=== PATIENT | male | born 1990 | race Caucasian/White ===

== ENCOUNTER 2018-03-02 21:31 | Emergency (ER) | payer SELFPAY ==
[~2018-03-02] VITALS: Ht 175.3 cm; Wt 80.0 kg
[2018-03-02] MEDS ORDERED: IOHEXOL 350 MG/ML 10 ML VIAL (for RAD DIAG) IVCONTRAST ONE (21:32)
[2018-03-02 21:44] VITALS: BP 150/78; PULSE 85; RESP 18; TEMP 99.3; O2SAT 98
[2018-03-02] MEDS ORDERED: SODIUM CHLOR 0.9% 1000 ML INJ 1,000 ML IV SCH (23:02)
[2018-03-02] MEDS ORDERED: ONDANSETRON ODT 4 MG TAB PO ONE (23:15)
[2018-03-02] MEDS ORDERED: KETOROLAC TROMETHAMINE 30 MG/ML (IVP) VIAL IVP ONE (23:15)
[2018-03-02] MEDS ORDERED: SODIUM CHLORIDE 0.9% FLUSH 10 ML FLUSH IV FLUSH PRN (23:15)
[2018-03-02 23:39] LABS: AUTOMATED NEUTROPHIL # 7.8 TH/MM3 (1.8-7.7); BASOPHIL # 0.1 TH/MM3 (0-0.2); BASOPHIL % 0.5 % (0.0-2.0); EOSINOPHIL % 0.1 % (0.0-4.0); HEMATOCRIT 42.9 % (39.0-51.0); HEMOGLOBIN 14.8 GM/DL (13.0-17.0); LYMPH % 8.8 % (9.0-44.0); LYMPHOCYTE # 0.9 TH/MM3 (1.0-4.8); MEAN CELL VOLUME 89.9 FL (80.0-100.0); MEAN CORPUSCULAR HEMOGLOBIN 31.1 PG (27.0-34.0); MEAN CORPUSCULAR HGB CONC 34.6 % (32.0-36.0); MEAN PLATELET VOLUME 9.3 FL (7.0-11.0); MONO % 10.8 % (0.0-8.0); MONOCYTE # 1.1 TH/MM3 (0-0.9); NEUT % 79.8 % (16.0-70.0); PLATELET COUNT 139 TH/MM3 (150-450); RED BLOOD COUNT 4.77 MIL/MM3 (4.50-5.90); RED CELL DISTRIBUTION WIDTH 13.7 % (11.6-17.2); WHITE BLOOD COUNT 9.7 TH/MM3 (4.0-11.0)
[2018-03-02 23:51] LABS: INTERNATIONAL NORMALIZED RATIO 1.1 RATIO; PROTHROMBIN TIME - PATIENT 11.2 SEC (9.8-11.6)
[2018-03-03 00:01] LABS: ALKALINE PHOSPHATASE 48 U/L (45-117); TOTAL BILIRUBIN ADULT 0.8 MG/DL (0.2-1.0); TOTAL PROTEIN 8.5 GM/DL (6.4-8.2)
[2018-03-03 00:12] LABS: ALBUMIN 4.2 GM/DL (3.4-5.0); ALT (GPT) 70 U/L (12-78); AST (GOT) 41 U/L (15-37); BLOOD UREA NITROGEN 11 MG/DL (7-18); CALCIUM 8.9 MG/DL (8.5-10.1); CHLORIDE 99 MEQ/L (98-107); CREATININE 0.87 MG/DL (0.60-1.30); GLOMERULAR FILTRATION RATE 104 ML/MIN (>89); GLUCOSE,RANDOM 84 MG/DL (74-106); SODIUM (NA) 136 MEQ/L (136-145)
[2018-03-03 00:47] LABS: BILIRUBIN, URINE NEG (NEG); BLOOD, URINE NEG (NEG); GLUCOSE,URINE NEG (NEG); KETONE, URINE 80 OR GREATER mg/dL (NEG); MUCUS URINE FEW /lpf (OCC); NITRITE,URINE NEG (NEG); URINE COLOR YELLOW (YELLW/STRAW); URINE LEUKOCYTE ESTERASE NEG (NEG)
--- NOTE | 2018-03-03 01:15 | RADRPT ---
EXAM DATE: 03/03/2018 12:59 AM EDT AGE/SEX: 27 years / Male INDICATIONS: Abdomen pain with nausea and vomiting. CLINICAL DATA: This is the patient's initial encounter. Patient reports that signs and symptoms have been present for 1 day and indicates a pain score of 9/10. MEDICAL/SURGICAL HISTORY: Pancreatitis. . ORAL CONTRAST: No oral contrast ingested. RADIATION DOSE: 6.70 CTDI (mGy) COMPARISON: No prior exams available for comparison. TECHNIQUE: Multiple contiguous axial images were obtained through the abdomen and pelvis following b olus infusion of 80 ml Omnipaque 350 (iohexol) nonionic water-soluble contrast as a single exam dos e. No oral contrast ingested. Using automated exposure control and adjustment of the mA and/or kV ac cording to patient size, radiation dose was kept as low as reasonably achievable to obtain optimal di agnostic quality images. DICOM format image data is available electronically for review and comparis on. FINDINGS: Lower Lungs: Mild bibasilar atelectasis Liver: The liver has a homogeneous density without space-occupying lesion. There is no dilation of th e biliary tree. Spleen: Homogeneous density without enlargement. Pancreas: Unremarkable without mass or calcification. Kidneys: Normal in size and shape. No evidence of mass or hydronephrosis. Adrenal Glands: Unremarkable. Aorta: The aorta and proximal iliac vessels are grossly unremarkable without aneurysmal dilation. Bowel/Mesentery: The bowel loops are grossly unremarkable. The cecum and sigmoid colon have a normal configuration. Abdominal Wall: Intact. Retroperitoneum: No evidence of adenopathy in the retrocrural, para-aortic, or deep pelvic regions. Bladder: Contours are smooth. Reproductive Organs: No abnormal masses or calcifications seen. Inguinal: The inguinal region is unremarkable without evidence of adenopathy. Bony Structures: Unremarkable. CONCLUSION: 1. Negative CT Abdomen and Pelvis with contrast. Electronically signed by: Taqueria Johnson MD 03/03/2018 1:14 AM EDT
--- NOTE | 2018-03-03 02:17 | PD ---
HPI Chief Complaint: GI Complaint Time Seen by Provider: 22:53 Travel History International Travel<30 days: No Contact w/Intl Traveler<30days: No Traveled to known affect area: No History of Present Illness HPI Patient is a 27 year old male who comes in complaining of fever, nausea, vomiting, and headache. He says that Friday he developed a fever that has been up and down for the past 3 days. He says last night he started to have nausea and vomiting. He reports having a normal bowel movement yesterday. He says he has some upper abdominal pain. He denies any urinary symptoms. He says he has been in contact with people who have had cold symptoms, but not the same symptoms he is experiencing. He says he has a history of chronic pancreatitis and is concerned this may be the problem. Severity is mild to moderate. PFSH Past Medical History Medical History: Denies Significant Hx Pancreatitis: Yes Tetanus Vaccination: Unknown Influenza Vaccination: No Past Surgical History Appendectomy: Yes Social History Alcohol Use: No Tobacco Use: Yes Substance Use: No Allergies-Medications (Allergen,Severity, Reaction): Coded Allergies: No Known Allergies (Unverified , 03/02/18) Review of Systems Except as stated in HPI: all other systems reviewed are Neg General / Constitutional: Positive: Fever, No: Chills HENT: Positive: Headaches, No: Lightheadedness Cardiovascular: No: Chest Pain or Discomfort Respiratory: No: Shortness of Breath Gastrointestinal: Positive: Nausea, Vomiting, Abdominal Pain Skin: No Rash Neurologic: No: Weakness, Dizziness Physical Exam Narrative GENERAL: Awake and alert, in no acute distress. SKIN: Focused skin assessment warm/dry. HEAD: Atraumatic. Normocephalic. EYES: Pupils equal and round. No scleral icterus. EOMI. ENT: Mucous membranes pink and moist. NECK: Trachea midline. No JVD. No meningeal signs. CARDIOVASCULAR: Regular rate and rhythm. No murmur appreciated. RESPIRATORY: No accessory muscle use. Clear to auscultation. Breath sounds equal bilaterally. GASTROINTESTINAL: Abdomen soft, nondistended. Tenderness to palpation of the upper abdomen. No rebound or guarding. MUSCULOSKELETAL: No obvious deformities. No clubbing. No cyanosis. No edema. NEUROLOGICAL: Awake and alert. No obvious cranial nerve deficits. Motor grossly within normal limits. Normal speech. PSYCHIATRIC: Appropriate mood and affect; insight and judgment normal. Data Data Last Documented VS Vital Signs Date Time Temp Pulse Resp B/P (MAP) Pulse Ox O2 Delivery O2 Flow Rate FiO2 03/02/18 21:44 99.3 85 18 150/78 (102) 98 Orders Orders Complete Blood Count With Diff (03/02/18 23:02) Comprehensive Metabolic Panel (03/02/18 23:02) Lipase (03/02/18 23:02) Prothrombin Time / Inr (Pt) (03/02/18 23:02) Act Partial Throm Time (Ptt) (03/02/18 23:02) Urinalysis - C+S If Indicated (03/02/18 23:02) Iv Access Insert/Monitor (03/02/18 23:02) Ecg Monitoring (03/02/18 23:) Oximetry (03/02/18 23:02) Sodium Chlor 0.9% 1000 Ml Inj (Ns 1000 M (03/02/18 23:02) Sodium Chloride 0.9% Flush (Ns Flush) (03/02/18 23:15) Ketorolac Inj (Toradol Inj) (03/02/18 23:15) Ondansetron Odt (Zofran Odt) (03/02/18 23:15) Ct Abd/Pel W Iv Contrast(Rout) (03/03/18 ) Iohexol 350 Inj (Omnipaque 350 Inj) (03/02/18 21:32) Dicyclomine (Bentyl) (03/03/18 02:30) Labs Laboratory Tests Test 03/02/18 23:17 03/03/18 00:30 White Blood Count 9.7 TH/MM3 Red Blood Count 4.77 MIL/MM3 Hemoglobin 14.8 GM/DL Hematocrit 42.9 % Mean Corpuscular Volume 89.9 FL Mean Corpuscular Hemoglobin 31.1 PG Mean Corpuscular Hemoglobin Concent 34.6 % Red Cell Distribution Width 13.7 % Platelet Count 139 TH/MM3 Mean Platelet Volume 9.3 FL Neutrophils (%) (Auto) 79.8 % Lymphocytes (%) (Auto) 8.8 % Monocytes (%) (Auto) 10.8 % Eosinophils (%) (Auto) 0.1 % Basophils (%) (Auto) 0.5 % Neutrophils # (Auto) 7.8 TH/MM3 Lymphocytes # (Auto) 0.9 TH/MM3 Monocytes # (Auto) 1.1 TH/MM3 Eosinophils # (Auto) 0.0 TH/MM3 Basophils # (Auto) 0.1 TH/MM3 CBC Comment DIFF FINAL Differential Comment Prothrombin Time 11.2 SEC Prothromb Time International Ratio 1.1 RATIO Activated Partial Thromboplast Time 25.6 SEC Blood Urea Nitrogen 11 MG/DL Creatinine 0.87 MG/DL Random Glucose 84 MG/DL Total Protein 8.5 GM/DL Albumin 4.2 GM/DL Calcium Level 8.9 MG/DL Alkaline Phosphatase 48 U/L Aspartate Amino Transf (AST/SGOT) 41 U/L Alanine Aminotransferase (ALT/SGPT) 70 U/L Total Bilirubin 0.8 MG/DL Sodium Level 136 MEQ/L Potassium Level 4.0 MEQ/L Chloride Level 99 MEQ/L Carbon Dioxide Level 28.0 MEQ/L Anion Gap 9 MEQ/L Estimat Glomerular Filtration Rate 104 ML/MIN Lipase 45 U/L Urine Color YELLOW Urine Turbidity CLEAR Urine pH 7.0 Urine Specific [place] 1.019 Urine Protein 30 mg/dL Urine Glucose (UA) NEG mg/dL Urine Ketones 80 OR GREATER mg/dL Urine Occult Blood NEG Urine Nitrite NEG Urine Bilirubin NEG Urine Urobilinogen 4.0 OR GREATER mg/dL Urine Leukocyte Esterase NEG Urine RBC 1 /hpf Urine WBC LESS THAN 1 /hpf Urine Mucus FEW /lpf Microscopic Urinalysis Comment CULT NOT INDICATED MDM Medical Decision Making Medical Screen Exam Complete: Yes Emergency Medical Condition: Yes Medical Record Reviewed: Yes Differential Diagnosis gastritis vs gastroenteritis vs viral illness vs pancreatitis Narrative Course Patient is a 27 year old male who comes in complaining of nausea and vomiting with some upper abdominal pain. Exam shows mild upper abdominal tenderness. IV established, labs sent. Labs show no acute abnormalities. UA is positive for ketones. Patient given IVF, Zofran, Toradol. CT abd/pelvis performed shows no acute abnormalities. Last 24 hours Impressions Abdomen/Pelvis CT 03/03/18 0000 Signed Impressions: CONCLUSION: 1. Negative CT Abdomen and Pelvis with contrast. Patient able to drink without vomiting. Advised to drink plenty of fluids. Advised to eat a bland diet if feeling hungry. Advised to continue tylenol or Ibuprofen as needed for pain or fever. Given a prescription for Zofran. Advised to follow up with a PCP. Advised to return to the ED as needed for any worsening symptoms. Diagnosis Primary Impression: Nausea & vomiting Qualified Codes: R11.2 - Nausea with vomiting, unspecified Patient Instructions: Acute Nausea and Vomiting (ED), General Instructions Additional Instructions: Avoid drug use. Follow-up with a primary care doctor. Take Tylenol or ibuprofen as needed for fever or pain. Take Zofran as needed for nausea. Drink plenty of fluids. Eat a bland diet. Return to the ED as needed for any worsening symptoms. Scripts Ondansetron Odt (Zofran Odt) 4 Mg Tab 4 MG SL Q6HR Y for Nausea/Vomiting, #12 TAB 0 Refills Prov: Nicole Lema MD 03/03/18 Disposition: 01 DISCHARGE HOME Condition: Stable Nicole Lema MD Mar 03, 2018 02:17
[2018-03-03] MEDS ORDERED: DICYCLOMINE HCL 10 MG CAP PO ONE (02:30)
[2018-03-03] MEDS ORDERED: ZOFR4TAB3 SL (02:41)
== END 2018-03-03 03:43 | disposition home or self-care (01) ==
LOC: NEPC 21:31
DX: R11.2 Nausea with vomiting, unspecified (principal); R50.9 Fever, unspecified; R51 Headache; R10.10 Upper abdominal pain, unspecified; Z72.0 Tobacco use; Z87.19 Personal history of other diseases of the digestive system
CPT/HCPCS: 74177; 80053; 81001; 83690; 85025; 85610; 85730; 96361; 96374; 99284; J1885; J7030; Q9967

== ENCOUNTER 2018-03-07 13:42 | Emergency (ER) | payer SELFPAY ==
[~2018-03-07] VITALS: Ht 172.7 cm; Wt 77.0 kg
[~2018-03-07 13:42] MED LIST: ZOFR4TAB3 SL
[2018-03-07 13:48] VITALS: BP 117/67; PULSE 84; RESP 16; TEMP 98.3; O2SAT 99
[2018-03-07] MEDS ORDERED: PERM5CRE11 TOPICAL (15:26)
[2018-03-07] MEDS ORDERED: PRED50 PO (15:26)
--- NOTE | 2018-03-07 15:27 | PD ---
HPI Chief Complaint: Skin Problem Time Seen by Provider: 15:12 Travel History International Travel<30 days: No Contact w/Intl Traveler<30days: No Traveled to known affect area: No History of Present Illness HPI 27-year-old male presents emergency department for evaluation of bites on his forearm, hand, and trunk. Patient states that he has been staying at a friend' s house. He has noticed these bites on his arms. He thought at first it was bedbug bites, but he got more today when he was at their house. He denies any new exposures. No fever chills. States that they are very itchy in nature. He has not taken anything for them. He has not seen any bugs. He has no other symptoms to report. [facility] Past Medical History Medical History: Denies Significant Hx Pancreatitis: Yes Past Surgical History Appendectomy: Yes Social History Alcohol Use: No Tobacco Use: Yes Substance Use: No Allergies-Medications (Allergen,Severity, Reaction): Coded Allergies: No Known Allergies (Unverified , 03/02/18) Reported Meds & Prescriptions Reported Meds & Active Scripts Active Prednisone 50 Mg Tab 50 Mg PO DAILY 5 Days Elimite Topical (Permethrin) 5% Cream 1 Applic TOPICAL ONCE Review of Systems Except as stated in HPI: all other systems reviewed are Neg Physical Exam Narrative GENERAL: Well-nourished male patient in no acute distress. SKIN: Focused skin assessment warm/dry. Scattered blanchable erythematous wheals on the extremities. There are a few on the trunk. Some are with mild excoriation secondary to scratching. HEAD: Atraumatic. Normocephalic. EYES: Pupils equal and round. No scleral icterus. No injection or drainage. ENT: No nasal bleeding or discharge. Mucous membranes pink and moist. NECK: Trachea midline. No JVD. No stridor CARDIOVASCULAR: Regular rate and rhythm. No murmur appreciated. RESPIRATORY: No accessory muscle use. Clear to auscultation. Breath sounds equal bilaterally. MUSCULOSKELETAL: No obvious deformities. No clubbing. No cyanosis. No edema. NEUROLOGICAL: Awake and alert. No obvious cranial nerve deficits. Motor grossly within normal limits. Normal speech. PSYCHIATRIC: Appropriate mood and affect; insight and judgment normal. Data Data Last Documented VS Vital Signs Date Time Temp Pulse Resp B/P (MAP) Pulse Ox O2 Delivery O2 Flow Rate FiO2 03/07/18 13:48 98.3 84 16 117/67 (84) 99 Orders Orders Dexamethasone Inj (Decadron Inj) (03/07/18 15:30) Diphenhydramine (Benadryl) (03/07/18 15:30) Ranitidine Liq (Zantac Liq) (03/07/18 15:30) Ed Discharge Order (03/07/18 15:23) MDM Medical Decision Making Medical Screen Exam Complete: Yes Emergency Medical Condition: Yes Medical Record Reviewed: Yes Differential Diagnosis Insect bite versus scabies versus urticaria versus contact dermatitis Narrative Course 27-year-old male presents emergency department for evaluation. Patient appears well and without distress. Physical exam is consistent with bedbugs. This could also be scabies as there is some between the webbing of his fingers and smaller areas. I have offered treatment for this and suggested treatment for bedbugs as well. He is treated for itching here. He is encouraged to follow- up with primary care provider and return immediately with acute worsening symptoms. Diagnosis Primary Impression: Insect bites Qualified Codes: W57.XXXA - Bitten or stung by nonvenomous insect and other nonvenomous arthropods, initial encounter Referrals: Primary Care Physician Patient Instructions: Bed Bugs (ED), General Instructions, Scabies (ED) Additional Instructions: Avoid scratching the lesions Consider treatment of your sleeping area Benadryl as directed on the package as needed for itching Wash all bedding in hot water and dry on hottest setting Seek dermatology evaluation Follow up with your primary care provider Return to ED with acute worsening of symptoms Med/Other Pt SpecificInfo: Prescription(s) given Scripts Prednisone (Prednisone) 50 Mg Tab 50 MG PO DAILY for 5 Days, #5 TAB 0 Refills Prov: Katelynn Morrison 03/07/18 Permethrin Topical (Elimite Topical) 5% Cream 1 APPLIC TOPICAL ONCE for Scabies, #1 TUBE 0 Refills Prov: Katelynn Morrison 03/07/18 Disposition: 01 DISCHARGE HOME Condition: Stable Katelynn Morrison Mar 07, 2018 15:27
[2018-03-07] MEDS ORDERED: DEXAMETHASONE SOD PHOS 4 MG/ML VIAL IM ONE (15:30)
[2018-03-07] MEDS ORDERED: diphenhydrAMINE HCL 50 MG CAP PO ONE (15:30)
[2018-03-07] MEDS ORDERED: RANITIDINE HCL SYRUP 150 MG/10 ML UDC PO ONE (15:30)
== END 2018-03-07 15:54 | disposition home or self-care (01) ==
LOC: NEPE 13:42
DX: T14.8XXA Other injury of unspecified body region, initial encounter (principal); W57.XXXA Bitten or stung by nonvenomous insect and other nonvenomous arthropods, initial encounter
CPT/HCPCS: 96372; 99283; J1100; Q0163

== ENCOUNTER 2018-07-28 15:52 | Inpatient (IN) ==
[2018-07-28] MEDS ORDERED: Sod Chloride 0.9% Inj 1,000 ML IV.SIG ONE ×2 (16:24→17:12)
[2018-07-28] MEDS ORDERED: Morphine Inj 4 MG/ML Vial IV.PUSH ONE (16:24)
[2018-07-28 16:51] LABS: Baso % (Auto) 0.4 % (0.0-2.0); Hematocrit 43.4 % (39.0-51.0); Hemoglobin 14.9 gm/dL (13.0-17.0); Lymph # (Auto) 0.7 th/mm3 (1.0-4.8); Lymph % (Auto) 8.5 % (9.0-44.0); Mean Corpuscular HGB Conc 34.2 % (32.0-36.0); Mean Corpuscular Hemoglobin 30.7 pg (27.0-34.0); Mean Corpuscular Volume 89.6 fL (80.0-100.0); Mean Platelet Volume 9.4 fL (7.0-11.0); Mono # (Auto) 0.7 th/mm3 (0.0-0.9); Mono % (Auto) 8.1 % (0.0-8.0); Platelet Count 209 th/mm3 (150-450); Red Blood Count 4.84 mil/mm3 (4.50-5.90); Red Cell Distribution Width 13.3 % (11.6-17.2); White Blood Count 8.4 th/mm3 (4.0-11.0)
--- NOTE | 2018-07-28 17:11 | ED ---
HPI General Chief Complaint: Abdominal Pain Stated Complaint: med clearance/dbpd Time Seen by Provider: 07/28/18 16:17 Source: patient Mode of arrival: ambulatory Limitations: no limitations History of Present Illness HPI narrative: 28-year-old male with PMH of chronic alcoholism and pancreatitis presents to the ED under custody of law enforcement for medical clearance. Patient endorses 3-day history of epigastric pain, 10/10, sharp, no alleviating or exacerbating factors reported. Also endorses nausea and vomiting, worsened by eating. He states that he has been only taking a few sips of water for the last couple days. He denies fever, chills, changes in bowel habits, dysuria, back pain. States the symptoms are similar to previous episodes of pancreatitis. He also states that he was recently in detox for alcohol. He states that he lives in a sober house. No history of withdrawal seizures. Endorses history of laparoscopic appendectomy. No treatment attempted before arrival. Related Data Allergies Allergy/AdvReac Type Severity Reaction Status Date / Time No Known Allergies Allergy Unverified 03/02/18 21:46 Review of Systems ROS: all other systems reviewed are negative [facility] Medical History Medical History Appendicitis (Acute) Pancreatitis (Acute) Surgical History Surgical History History of appendectomy (Acute) Family History Family History Other Diabetes mellitus Social History Social History Substance History: No History of Abuse Second Hand Smoke Exposure: No Smoking Status: Never smoker How Often Do You Have a Drink Containing Alcohol: Never Recent Travel in [facility] within the Last 8 Weeks: No Recent Out of Country Travel within the Last 8 Weeks: No Immunization History Tetanus Immunization: <5 Years Exam Narrative Exam Narrative: GENERAL: Well-nourished, well-developed white male, dry heaving into a collection bag. SKIN: Focused skin assessment warm/dry. HEAD: Atraumatic. Normocephalic. EYES: Pupils equal and round. No scleral icterus. No injection or drainage. ENT: No nasal bleeding or discharge. Mucous membranes pink and moist. NECK: Trachea midline. No JVD. CARDIOVASCULAR: Regular rate and rhythm. No murmur appreciated. RESPIRATORY: No accessory muscle use. Clear to auscultation. Breath sounds equal bilaterally. GASTROINTESTINAL: Abdomen soft, nondistended. Hepatic and splenic margins not palpable. Positive epigastric tenderness. Active bowel sounds. MUSCULOSKELETAL: No obvious deformities. No clubbing. No cyanosis. No edema. NEUROLOGICAL: Awake and alert. No obvious cranial nerve deficits. Motor grossly within normal limits. Normal speech. PSYCHIATRIC: Appropriate mood and affect; insight and judgment normal. Course Reevaluation(s) Reevaluation #1: Lab work and CT all resulted and within normal limits. Patient resting in the stretcher. Plan was to discharge into law enforcement custody. However just before discharge patient began to demonstrate seizure- like activity. He was administered 2 mg of Ativan. Episode lasted approximately 15-20 seconds. No incontinence. Patient currently not answering questions. CT pending. Plan to admit for new onset seizure. Time: 18:29 Initial Documented Vital Signs Temperature 98.9 F 07/28/18 16:02 Pulse Rate 96 H 07/28/18 16:02 Respiratory Rate 20 07/28/18 16:02 Blood Pressure 121/57 L 07/28/18 16:02 Pulse Oximetry 100 07/28/18 16:02 Last Documented Vital Signs Temperature 97.9 F 07/29/18 16:00 Pulse Rate 68 07/29/18 16:00 Respiratory Rate 16 07/29/18 16:00 Blood Pressure 114/61 07/29/18 16:00 Pulse Oximetry 96 07/29/18 16:00 Medical Decision Making HUE Attestation HUE supervised visit: Yes Attestation: I, Dr. Mayberry, have reviewed the advance practice practitioner's documentation and am in agreement, met with the patient face to face, made the diagnosis, and the medical decision making was done by me. *My assessment and Findings: Seizure. Substance abuse. Abdominal pain. [facility] Narrative Medical decision making narrative: 28-year-old male with PMH pancreatitis, chronic alcoholism, in remission, currently living in a sober house presents the ED under law enforcement custody for evaluation of 3-day history of abdominal pain. Afebrile on presentation. Tender to palpation in the upper quadrants. Patient's spitting into emesis bag. IV was established. He is administered a liter of saline, 4 mg Zofran and 4 mg morphine. Lab work without acute findings. Alcohol level less than 3. CT abdomen normal. Plans to discharge in the law enforcement custody. However just before discharge patient demonstrated seizure-like activity. This lasted less than 1 minute. He was administered 2 mg Ativan. Currently resting comfortably. Plan to admit for new onset seizure. I spoke with Dr. Bey who agrees to accept him to the medicine service. Please see medicine notes for disposition. Medical Screen Exam Complete: Yes Emergency Medical Condition: Yes Differential Diagnosis Differential Diagnosis: Pancreatitis versus withdrawal versus malingering versus other Lab Data Result diagrams: 07/28/18 23:45 07/29/18 10:13 Lab Results 07/28/18 07/28/18 07/28/18 Range/Units 16:35 16:35 17:30 WBC 8.4 (4.0-11.0) th/mm3 RBC 4.84 (4.50-5.90) mil/mm3 Hgb 14.9 (13.0-17.0) gm/dL Hct 43.4 (39.0-51.0) % MCV 89.6 (80.0-100.0) fL MCH 30.7 (27.0-34.0) pg MCHC 34.2 (32.0-36.0) % RDW 13.3 (11.6-17.2) % Plt Count 209 (150-450) th/mm3 MPV 9.4 (7.0-11.0) fL Neut % (Auto) 83.0 H (16.0-70.0) % Lymph % (Auto) 8.5 L (9.0-44.0) % Valley % (Auto) 8.1 H (0.0-8.0) % Eos % (Auto) 0.0 (0.0-4.0) % Baso % (Auto) 0.4 (0.0-2.0) % Neut # (Auto) 7.0 (1.8-7.7) th/mm3 Lymph # (Auto) 0.7 L (1.0-4.8) th/mm3 Valley # (Auto) 0.7 (0.0-0.9) th/mm3 Eos # (Auto) 0.0 (0.0-0.4) th/mm3 Baso # (Auto) 0.0 (0.0-0.2) th/mm3 WBC Differential . Differential Comment Auto diff final Sodium 137 (136-145) meq/L Potassium 3.9 (3.5-5.1) meq/L Chloride 103 (98-107) meq/L Carbon Dioxide 22.8 (21.0-32.0) meq/L Anion Gap 11 (5-15) meq/L BUN 18 (7-18) mg/dL Creatinine 0.83 (0.60-1.30) mg/dL Estimated GFR Greater than 89 (>89) mL/min POC Glucose (68-110) mg/dl Random Glucose 105 (74-106) mg/dL Calcium 9.2 (8.5-10.1) mg/dL Magnesium 1.9 (1.5-2.5) mg/dL Total Bilirubin 0.7 (0.2-1.0) mg/dL AST 80 H (15-37) U/L ALT 112 H (12-78) U/L Alkaline Phosphatase 57 (45-117) U/L Total Creatine Kinase (39-308) U/L Total Protein 8.6 H (6.4-8.2) g/dL Albumin 4.1 (3.4-5.0) g/dL Lipase 58 L (73-393) U/L Urine Color Hans[place] (Yellw/Straw) Urine Clarity Cloudy H (Clear) Urine pH 5.0 (5.0-8.5) Ur Specific [place] 1.025 (1.002-1.035) Urine Protein 100 H (Neg-Trace) mg/dL Urine Glucose (UA) Negative (Negative) mg/dL Urine Ketones 20 (Negative) mg/dL Urine Occult Blood Negative (Negative) Urine Nitrate Negative (Negative) Urine Bilirubin Negative (Negative) Urine Urobilinogen 4 or greater (Less than 2) mg/dL Ur Leukocyte Esterase Negative (Negative) Urine RBC 1 (0-3) /hpf Urine WBC 3 (0-5) /hpf Amorphous Sediment Rare H (None) /hpf Urine Bacteria Few H (None) /hpf Urine Mucus Many H (Occasional) /lpf Micro UA Comment Culture not ind Ur Microscopic Review Not Reportable Urine Culture Comments Culture not ind Urine Opiates Screen (Neg) Ur Barbiturates Screen (Neg) Ur Amphetamines Screen (Neg) U Benzodiazepines Scrn (Neg) Urine Cocaine Screen (Neg) U Cannabinoids Screen (Neg) Serum Alcohol (0-5) mg/dL 07/28/18 07/28/18 07/28/18 Range/Units 17:30 20:48 23:45 WBC (4.0-11.0) th/mm3 RBC (4.50-5.90) mil/mm3 Hgb (13.0-17.0) gm/dL Hct (39.0-51.0) % MCV (80.0-100.0) fL MCH (27.0-34.0) pg MCHC (32.0-36.0) % RDW (11.6-17.2) % Plt Count (150-450) th/mm3 MPV (7.0-11.0) fL Neut % (Auto) (16.0-70.0) % Lymph % (Auto) (9.0-44.0) % Valley % (Auto) (0.0-8.0) % Eos % (Auto) (0.0-4.0) % Baso % (Auto) (0.0-2.0) % Neut # (Auto) (1.8-7.7) th/mm3 Lymph # (Auto) (1.0-4.8) th/mm3 Valley # (Auto) (0.0-0.9) th/mm3 Eos # (Auto) (0.0-0.4) th/mm3 Baso # (Auto) (0.0-0.2) th/mm3 WBC Differential Differential Comment Sodium 141 (136-145) meq/L Potassium 3.7 (3.5-5.1) meq/L Chloride 106 (98-107) meq/L Carbon Dioxide 25.1 (21.0-32.0) meq/L Anion Gap 10 (5-15) meq/L BUN 14 (7-18) mg/dL Creatinine 0.79 (0.60-1.30) mg/dL Estimated GFR Greater than 89 (>89) mL/min POC Glucose 125 H (68-110) mg/dl Random Glucose 104 (74-106) mg/dL Calcium 8.4 L D (8.5-10.1) mg/dL Magnesium (1.5-2.5) mg/dL Total Bilirubin 0.7 (0.2-1.0) mg/dL AST 62 H (15-37) U/L ALT 101 H (12-78) U/L Alkaline Phosphatase 53 (45-117) U/L Total Creatine Kinase (39-308) U/L Total Protein 7.6 D (6.4-8.2) g/dL Albumin 3.7 (3.4-5.0) g/dL Lipase (73-393) U/L Urine Color (Yellw/Straw) Urine Clarity (Clear) Urine pH (5.0-8.5) Ur Specific [place] (1.002-1.035) Urine Protein (Neg-Trace) mg/dL Urine Glucose (UA) (Negative) mg/dL Urine Ketones (Negative) mg/dL Urine Occult Blood (Negative) Urine Nitrate (Negative) Urine Bilirubin (Negative) Urine Urobilinogen (Less than 2) mg/dL Ur Leukocyte Esterase (Negative) Urine RBC (0-3) /hpf Urine WBC (0-5) /hpf Amorphous Sediment (None) /hpf Urine Bacteria (None) /hpf Urine Mucus (Occasional) /lpf Micro UA Comment Ur Microscopic Review Urine Culture Comments Urine Opiates Screen Pos H (Neg) Ur Barbiturates Screen Neg (Neg) Ur Amphetamines Screen Neg (Neg) U Benzodiazepines Scrn Neg (Neg) Urine Cocaine Screen Neg (Neg) U Cannabinoids Screen Pos H (Neg) Serum Alcohol Less than 3 (0-5) mg/dL 07/28/18 07/29/18 07/29/18 Range/Units 23:45 10:13 10:13 WBC 8.9 (4.0-11.0) th/mm3 RBC 4.65 (4.50-5.90) mil/mm3 Hgb 14.2 (13.0-17.0) gm/dL Hct 41.3 (39.0-51.0) % MCV 88.7 (80.0-100.0) fL MCH 30.5 (27.0-34.0) pg MCHC 34.4 (32.0-36.0) % RDW 13.1 (11.6-17.2) % Plt Count 210 (150-450) th/mm3 MPV 9.3 (7.0-11.0) fL Neut % (Auto) 79.3 H (16.0-70.0) % Lymph % (Auto) 10.4 (9.0-44.0) % Valley % (Auto) 9.9 H (0.0-8.0) % Eos % (Auto) 0.0 (0.0-4.0) % Baso % (Auto) 0.4 (0.0-2.0) % Neut # (Auto) 7.1 (1.8-7.7) th/mm3 Lymph # (Auto) 0.9 L (1.0-4.8) th/mm3 Valley # (Auto) 0.9 (0.0-0.9) th/mm3 Eos # (Auto) 0.0 (0.0-0.4) th/mm3 Baso # (Auto) 0.0 (0.0-0.2) th/mm3 WBC Differential . Differential Comment Auto diff final Sodium 139 (136-145) meq/L Potassium 3.3 L (3.5-5.1) meq/L Chloride 103 (98-107) meq/L Carbon Dioxide 24.2 (21.0-32.0) meq/L Anion Gap 12 (5-15) meq/L BUN 12 (7-18) mg/dL Creatinine 1.11 (0.60-1.30) mg/dL Estimated GFR 78 L (>89) mL/min POC Glucose (68-110) mg/dl Random Glucose 111 H (74-106) mg/dL Calcium 8.8 (8.5-10.1) mg/dL Magnesium (1.5-2.5) mg/dL Total Bilirubin (0.2-1.0) mg/dL AST (15-37) U/L ALT (12-78) U/L Alkaline Phosphatase (45-117) U/L Total Creatine Kinase 169 (39-308) U/L Total Protein (6.4-8.2) g/dL Albumin (3.4-5.0) g/dL Lipase (73-393) U/L Urine Color (Yellw/Straw) Urine Clarity (Clear) Urine pH (5.0-8.5) Ur Specific [place] (1.002-1.035) Urine Protein (Neg-Trace) mg/dL Urine Glucose (UA) (Negative) mg/dL Urine Ketones (Negative) mg/dL Urine Occult Blood (Negative) Urine Nitrate (Negative) Urine Bilirubin (Negative) Urine Urobilinogen (Less than 2) mg/dL Ur Leukocyte Esterase (Negative) Urine RBC (0-3) /hpf Urine WBC (0-5) /hpf Amorphous Sediment (None) /hpf Urine Bacteria (None) /hpf Urine Mucus (Occasional) /lpf Micro UA Comment Ur Microscopic Review Urine Culture Comments Urine Opiates Screen (Neg) Ur Barbiturates Screen (Neg) Ur Amphetamines Screen (Neg) U Benzodiazepines Scrn (Neg) Urine Cocaine Screen (Neg) U Cannabinoids Screen (Neg) Serum Alcohol (0-5) mg/dL Imaging Data Radiologist's impression: Abdomen/Pelvis CT 07/28/18 16:24 CONCLUSION: 1. Mild hepatosplenomegaly. Head CT 07/28/18 18:24 CONCLUSION: 1. No acute findings in the brain. 2. Left maxillary sinus disease. . Discharge Plan Discharge Disposition Patient Disposition: 30 Still Patient Discharge Details Diagnosis: Abdominal pain, epigastric Physicians Team ED Provider: Arnaldo Mayberry ED Midlevel Provider: Cece Reynolds Primary Care Provider: Primary Care Alice Mercado Attending Provider: Graham Hagen Other Providers: Jose Maria Valerio Status ED Status: Left Department Discharge Information Discharge Date/Time: 07/28/18 21:05
[2018-07-28 17:14] LABS: Alanine Aminotransferase 112 U/L (12-78); Albumin 4.1 g/dL (3.4-5.0); Anion Gap 11 meq/L (5-15); Aspartate Aminotransferase 80 U/L (15-37); Blood Urea Nitrogen 18 mg/dL (7-18); Calcium 9.2 mg/dL (8.5-10.1); Carbon Dioxide 22.8 meq/L (21.0-32.0); Chloride 103 meq/L (98-107); Glomerular Filtration Rate Greater Than 89 mL/min (>89); Glucose,Random 105 mg/dL (74-106); Lipase 58 U/L (73-393); Magnesium 1.9 mg/dL (1.5-2.5); Potassium 3.9 meq/L (3.5-5.1); Sodium 137 meq/L (136-145)
[2018-07-28 17:15] LABS: Alkaline Phosphatase 57 U/L (45-117); Total Protein 8.6 g/dL (6.4-8.2)
[2018-07-28 17:51] LABS: Amorphous Sediment,Urine Rare /hpf; Bacteria,Urine Few /hpf; Bilirubin,Urine Negative (Negative); Clarity,Urine Cloudy (Clear); Color,Urine Amber (Yellw/Straw); Glucose,Urine (UA) Negative (Negative); Leukocyte Esterase,Urine Negative (Negative); Mucus,Urine Many /lpf (Occasional); Nitrite,Urine Negative (Negative); Specific Gravity,Urine 1.025 (1.002-1.035); Urobilinogen,Urine 4 or Greater mg/dL (Less than 2)
--- NOTE | 2018-07-28 17:51 | CT ---
EXAM DATE: 07/28/2018 5:43 PM EST AGE/SEX: 28 years / Male INDICATIONS: Epigastric pain. Nausea and vomiting. CLINICAL DATA: This is the patient's initial encounter. Patient reports that signs and symptoms have been present for 1 day and indicates a pain score of 8/10. MEDICAL/SURGICAL HISTORY: Pancreatitis. Appendectomy. ORAL CONTRAST: No oral contrast ingested. RADIATION DOSE: 6.57 CTDI (mGy) COMPARISON: [facility], CT ABDOMEN & PELVIS W CONTRAST, 03/03/2018. . TECHNIQUE: Multiple contiguous axial images were obtained through the abdomen and pelvis following b olus infusion of 90 ml Omnipaque 350 (iohexol) nonionic water-soluble contrast as a single exam dos e. No oral contrast ingested. Using automated exposure control and adjustment of the mA and/or kV ac cording to patient size, radiation dose was kept as low as reasonably achievable to obtain optimal di agnostic quality images. DICOM format image data is available electronically for review and comparis on. FINDINGS: Lower Lungs: The visualized lower lungs are clear. Liver: Mild hepatomegaly is noted. The liver has a homogeneous density without space-occupying lesion . There is no dilation of the biliary tree. Spleen: Mild splenomegaly is noted. Pancreas: Unremarkable without mass or calcification. Kidneys: Normal in size and shape. No evidence of mass or hydronephrosis. Adrenal Glands: Unremarkable. Aorta: The aorta and proximal iliac vessels are grossly unremarkable without aneurysmal dilation. Bowel/Mesentery: The bowel loops are grossly unremarkable. The cecum and sigmoid colon have a normal configuration. Abdominal Wall: Intact. Retroperitoneum: No evidence of adenopathy in the retrocrural, para-aortic, or deep pelvic regions. Bladder: Contours are smooth. Reproductive Organs: No abnormal masses or calcifications seen. Inguinal: The inguinal region is unremarkable without evidence of adenopathy. Bony Structures: Unremarkable. CONCLUSION: 1. Mild hepatosplenomegaly. Electronically signed by: Taras Garcia MD 07/28/2018 5:49 PM EST
--- NOTE | 2018-07-28 19:09 | CT ---
EXAM DATE: 07/28/2018 7:05 PM EST AGE/SEX: 28 years / Male INDICATIONS: Seizure. CLINICAL DATA: This is the patient's initial encounter. Patient reports that signs and symptoms have been present for 1 day and indicates a pain score of 0/10. MEDICAL/SURGICAL HISTORY: Pancreatitis. ETOH Abuse. None. RADIATION DOSE: 56.35 CTDI (mGy) COMPARISON: No prior exams available for comparison. TECHNIQUE: CT of the head without contrast. Using automated exposure control and adjustment of the mA and/or kV according to patient size, radiation dose was kept as low as reasonably achievable to ob tain optimal diagnostic quality images. DICOM format image data is available electronically for revi ew and comparison. FINDINGS: Cerebrum: The ventricles are normal for age. No evidence of midline shift, mass lesion, hemorrhage or acute infarction. No extraaxial fluid collections are seen. Posterior Fossa: The cerebellum and brainstem are intact. The 4th ventricle is midline. The cerebe llopontine angle is unremarkable. Extracranial: The visualized portion of the orbits is intact. Soft tissue density in the left maxill gabriel sinus. Skull: The calvaria is intact. No evidence of skull fracture. CONCLUSION: 1. No acute findings in the brain. 2. Left maxillary sinus disease. . Electronically signed by: Bennie Mejia MD 07/28/2018 7:08 PM EST
[2018-07-28] MEDS ORDERED: LORazepam 1 MG Tablet PO PRN (19:50)
[2018-07-28] MEDS ORDERED: Haloperidol Inj 5 MG/ML Ampul IV.PUSH PRN (19:50)
--- NOTE | 2018-07-28 20:09 | P.HP ---
History of Present Illness Service: [facility] Primary Care Physician: No Primary Care Physician History of Present Illness: 28-year-old male with a past medical history significant for pancreatitis presents to the emergency department while under rest for the evaluation of abdominal pain that has been persistent since Friday. The patient denies any nausea/vomiting/diarrhea or fevers/chills. He reports the pain is similar to his chronic pancreatitis pain although lipase is within normal limits. The patient was evaluated including CT of the abdomen and pelvis which was negative for acute abnormalities and was about to be discharged when he had a witnessed seizure in the emergency department. The patient reports that while he lives in sober housing he drinks approximately 1/5 of alcohol daily. He also reports doing approximately 8 mg of Xanax every 2-3 days. The patient states he has had a seizure before in 2014 when he was in snf. He denies taking any seizure medications chronically and has not had a seizure since that time. He denies chest pain or shortness of breath. Review of Systems All other systems reviewed negative except as stated in HPI [facility], [facility] - History History Provided By: Patient - Medical History Medical History: Medical History (Last Reviewed 07/28/18 @ 19:58 by Trisha Bey MD) Appendicitis Pancreatitis - Surgical History Surgical History: Surgical History (Last Updated 07/28/18 @ 19:58 by Trisha Bey MD) History of appendectomy - Family History Family History: Family History (Last Updated 07/28/18 @ 19:58 by Trisha Bey MD) Other Diabetes mellitus - Tobacco History Smoking Status: Never smoker - Alcohol History How Often Do You Have a Drink Containing Alcohol: Monthly or less - Substance Use History Substance History: No History of Abuse - Travel History Recent Travel in the [place] Within the Last 8 Weeks: No Recent Travel Out of the Country Within the Last 8 Weeks: No - Immunization History Tetanus Immunization: <5 Years Medications and Allergies Active Medications: Active Medications Flumazenil (Romazecon Inj) 0.2 mg IV.PUSH Q1M PRN PRN Reason: OVERSEDATION Folic Acid (Folic Acid) 1 mg PO DAILY SABINA Stop: 08/03/18 08:59 Haloperidol Lactate (Haldol Inj) 1 mg IV.PUSH Q15M PRN PRN Reason: for severe agitation Lorazepam (Ativan) 1 mg PO Q4H PRN PRN Reason: for CIWA 8-10 Sodium Chloride (Ns Flush) 2 ml IV.FLUSH PRN PRN PRN Reason: FLUSH AFTER USING IV ACCESS Allergies Allergy/AdvReac Type Severity Reaction Status Date / Time No Known Allergies Allergy Unverified 03/02/18 21:46 Exam Vital signs: Vital Signs 07/28/18 16:02 07/28/18 18:32 07/28/18 18:35 Temperature 98.9 F Pulse Rate 96 H 99 H Respiratory Rate 20 22 22 Blood Pressure 121/57 L 129/56 L Pulse Oximetry 100 97 Intake & Output 07/28/18 07/28/18 07/29/18 06:59 18:59 06:59 Intake Total 1999 Balance 1999 Weight 77.111 kg Intake: IV 1999 NS Inj 1,000 ML @ Wide Open IV. 1999 SIG BOLUS ONE Rx#:[id number] Narrative: Gen.: No acute distress Head: Normocephalic. Atraumatic. EENT: Pupils equal round and reactive to light. Nose without drainage. Airway intact. Throat without injection. Cardiovascular: Regular rate and rhythm. No murmurs, rubs or gallops. Respiratory: Lungs clear to auscultation bilaterally. No wheezes or rhonchi. Abdomen: Soft, nontender, nondistended. No peritoneal signs. Musculoskeletal: No gross deformities. No edema. Skin: No obvious rashes or erythema. Neuro: Sensory and motor grossly intact. Cranial nerves II through XII grossly intact. Results - Labs CBC & Chem 7: 07/28/18 16:35 07/28/18 16:35 Labs: Laboratory Results - last 24 hr 07/28/18 07/28/18 07/28/18 16:35 16:35 17:30 WBC 8.4 RBC 4.84 Hgb 14.9 Hct 43.4 MCV 89.6 MCH 30.7 MCHC 34.2 RDW 13.3 Plt Count 209 MPV 9.4 Neut % (Auto) 83.0 H Lymph % (Auto) 8.5 L Moore % (Auto) 8.1 H Eos % (Auto) 0.0 Baso % (Auto) 0.4 Neut # (Auto) 7.0 Lymph # (Auto) 0.7 L [place] # (Auto) 0.7 Eos # (Auto) 0.0 Baso # (Auto) 0.0 WBC Differential . Differential Comment Auto diff final Sodium 137 Potassium 3.9 Chloride 103 Carbon Dioxide 22.8 Anion Gap 11 BUN 18 Creatinine 0.83 Estimated GFR Greater than 89 Random Glucose 105 Calcium 9.2 Magnesium 1.9 Total Bilirubin 0.7 AST 80 H ALT 112 H Alkaline Phosphatase 57 Total Protein 8.6 H Albumin 4.1 Lipase 58 L Urine Color [place] Urine Clarity Cloudy H Urine pH 5.0 Ur Specific [place] 1.025 Urine Protein 100 H Urine Glucose (UA) Negative Urine Ketones 20 Urine Occult Blood Negative Urine Nitrate Negative Urine Bilirubin Negative Urine Urobilinogen 4 or greater Ur Leukocyte Esterase Negative Urine RBC 1 Urine WBC 3 Amorphous Sediment Rare H Urine Bacteria Few H Urine Mucus Many H Micro UA Comment Culture not ind Ur Microscopic Review Not Reportable Urine Culture Comments Culture not ind - Imaging Impressions Abdomen/Pelvis CT 07/28/18 16:24 CONCLUSION: 1. Mild hepatosplenomegaly. Head CT 07/28/18 18:24 CONCLUSION: 1. No acute findings in the brain. 2. Left maxillary sinus disease. . Caprini VTE Risk Assessment Caprini VTE Risk Assessment: No/Low Risk (score <= 1) Caprini Risk Assessment Model: Point Value = 1 Point Value = 2 Point Value = 3 Point Value = 5 Age 41-60 Minor surgery BMI > 25 kg/m2 Swollen legs Varicose veins or History of unexplained or recurrent spontaneous Oral contraceptives or hormone replacement Sepsis (< 1 month) Serious lung disease, including pneumonia (< 1 month) Abnormal pulmonary function Acute myocardial infarction Congestive heart failure (< 1 month) History of inflammatory bowel disease Medical patient at bed rest Age 61-74 Arthroscopic surgery Major open surgery (> 45 min) Laparoscopic surgery (> 45 min) Malignancy Confined to bed (> 72 hours) Immobilizing plaster cast Central venous access Age >= 75 History of VTE Family history of VTE Factor V Leiden Prothrombin [id number] Lupus anticoagulant Anticardiolipin antibodies Elevated serum homocysteine Heparin-induced thrombocytopenia Other congenital or acquired thrombophilia Stroke (< 1 month) Elective arthroplasty Hip, pelvis, or leg fracture Acute spinal cord injury (< 1 month) Prophylaxis Regimen: Total Risk Factor Score Risk Level Prophylaxis Regimen 0-1 Low Early ambulation 2 Moderate Order ONE of the following: *Sequential Compression Device (SCD) *Heparin 5000 units SQ BID 3-4 Higher Order ONE of the following medications: *Heparin 5000 units SQ TID *Enoxaparin/Lovenox 40 mg SQ daily (WT < 150 kg, CrCl > 30 mL/min) *Enoxaparin/Lovenox 30 mg SQ daily (WT < 150 kg, CrCl > 10-29 mL/min) *Enoxaparin/Lovenox 30 mg SQ BID (WT < 150 kg, CrCl > 30 mL/min) AND/OR *Sequential Compression Device (SCD) 5 or more Highest Order ONE of the following medications: *Heparin 5000 units SQ TID (Preferred with Epidurals) *Enoxaparin/Lovenox 40 mg SQ daily (WT < 150 kg, CrCl > 30 mL/min) *Enoxaparin/Lovenox 30 mg SQ daily (WT < 150 kg, CrCl > 10-29 mL/min) *Enoxaparin/Lovenox 30 mg SQ BID (WT < 150 kg, CrCl > 30 mL/min) AND *Sequential Compression Device (SCD) Assessment and Plan - Plan Assessment/Plan: 1. ? Seizure Seizure was witnessed by ED staff who has concern for possible pseudoseizure Patient reports alcohol and benzo abuse Alcohol level and urine drug screen pending -patient is status post IV Ativan [facility] protocol Seizure precautions EEG ordered, if negative for seizure activity will plan for discharge 2. Abdominal pain Patient with history of pancreatitis, likely alcohol induced Lipase within normal limits CT of the abdomen/pelvis significant for mild hepatosplenomegaly without acute process Now resolved 3. History of alcohol abuse/benzo abuse Plan as above FEN Regular diet Electrolytes: Monitor and replete as needed
[2018-07-28 23:58] LABS: Baso % (Auto) 0.4 % (0.0-2.0); Hematocrit 41.3 % (39.0-51.0); Hemoglobin 14.2 gm/dL (13.0-17.0); Lymph # (Auto) 0.9 th/mm3 (1.0-4.8); Lymph % (Auto) 10.4 % (9.0-44.0); Mean Corpuscular HGB Conc 34.4 % (32.0-36.0); Mean Corpuscular Hemoglobin 30.5 pg (27.0-34.0); Mean Corpuscular Volume 88.7 fL (80.0-100.0); Mean Platelet Volume 9.3 fL (7.0-11.0); Mono # (Auto) 0.9 th/mm3 (0.0-0.9); Mono % (Auto) 9.9 % (0.0-8.0); Neut # (Auto) 7.1 th/mm3 (1.8-7.7); Neut % (Auto) 79.3 % (16.0-70.0); Platelet Count 210 th/mm3 (150-450); Red Blood Count 4.65 mil/mm3 (4.50-5.90); Red Cell Distribution Width 13.1 % (11.6-17.2); White Blood Count 8.9 th/mm3 (4.0-11.0)
[2018-07-29 00:15] LABS: Albumin 3.7 g/dL (3.4-5.0); Anion Gap 10 meq/L (5-15); Aspartate Aminotransferase 62 U/L (15-37); Blood Urea Nitrogen 14 mg/dL (7-18); Calcium 8.4 mg/dL (8.5-10.1); Carbon Dioxide 25.1 meq/L (21.0-32.0); Chloride 106 meq/L (98-107); Glomerular Filtration Rate Greater Than 89 mL/min (>89); Glucose,Random 104 mg/dL (74-106); Potassium 3.7 meq/L (3.5-5.1); Sodium 141 meq/L (136-145)
[2018-07-29 00:16] LABS: Alanine Aminotransferase 101 U/L (12-78)
[2018-07-29 00:18] LABS: Alkaline Phosphatase 53 U/L (45-117); Total Protein 7.6 g/dL (6.4-8.2)
[2018-07-29 00:36] LABS: Amphetamine Screen,Urine Neg (Neg); Barbiturate Screen,Urine Neg (Neg); Cannabinoid Screen,Urine Pos (Neg); Cocaine Screen,Urine Neg (Neg)
[2018-07-29 00:47] LABS: Opiate Screen,Urine Pos (Neg)
[2018-07-29] MEDS ORDERED: Aluminum/Magnesium/Simethacone Susp 30 ML UDC PO PRN (08:51)
[2018-07-29] MEDS ORDERED: Docusate Sodium 100 MG Capsule PO PRN (08:51)
[2018-07-29] MEDS ORDERED: Senna/Docusate Sodium 8.6/50 MG Tablet PO PRN (08:51)
--- NOTE | 2018-07-29 08:58 | P.PN ---
Subjective Interval history: Follow-up seizure. [facility] called secondary to patient having seizure. RN describes patient having tonic-clonic activity for less than a minute and was unresponsive. Vital signs were stable. When I saw the patient, patient was following simple commands. Then a few minutes later, I was called again patient having another seizure episode. His extremities were stiff and shaking with his right hand holding his right side of the head. After he was given saline infusion, his abnormal motor activity resolved. Physical Exam Vital signs: Vital Signs 07/28/18 16:02 07/28/18 18:32 07/28/18 18:35 Temperature 98.9 F Pulse Rate 96 H 99 H Respiratory Rate 20 22 22 Blood Pressure 121/57 L 129/56 L Pulse Oximetry 100 97 07/28/18 20:00 07/29/18 00:00 07/29/18 03:14 Temperature 98.6 F 97.9 F 99.4 F Pulse Rate 56 L 52 L 46 L Respiratory Rate 18 20 21 Blood Pressure 114/54 L 130/67 122/57 L Pulse Oximetry 96 96 97 07/29/18 07:23 07/29/18 08:20 Temperature 99.3 F Pulse Rate 60 Respiratory Rate 20 Blood Pressure 122/65 Pulse Oximetry 96 97 Intake & Output 07/28/18 07/29/18 07/29/18 18:59 06:59 18:59 Intake Total 1999 120 / 120 Balance 1999 120 / 120 Weight 77.111 kg 77.111 kg Intake: IV 1999 NS Inj 1,000 ML @ Wide Open IV. 1999 SIG BOLUS ONE Rx#:[id number] Oral 120 / 120 Other: # Voids 1 Date of Last Bowel Movement 07/28/18 # Emes[place] 3 Weight On Admission 77.11 kg Narrative: Gen.: Well-developed, well-nourished Head: Normocephalic. Atraumatic. EENT: Pupils equal round and reactive to light. Nose without drainage. Airway intact. Throat without injection. Cardiovascular: Tachycardic. No murmurs, rubs or gallops. Respiratory: Lungs clear to auscultation bilaterally. No wheezes or rhonchi. Abdomen: Soft, nontender, nondistended. No peritoneal signs. Musculoskeletal: No gross deformities. No edema. Skin: No obvious rashes or erythema. Neuro: No facial asymmetry, pupils equal and reactive to light. Patient was moving all extremities with commands though with generalized weakness Results - Labs CBC & Chem 7: 07/28/18 23:45 07/28/18 23:45 Laboratory Results - last 24 hr 07/28/18 07/28/18 07/28/18 16:35 16:35 17:30 WBC 8.4 RBC 4.84 Hgb 14.9 Hct 43.4 MCV 89.6 MCH 30.7 MCHC 34.2 RDW 13.3 Plt Count 209 MPV 9.4 Neut % (Auto) 83.0 H Lymph % (Auto) 8.5 L [place] % (Auto) 8.1 H Eos % (Auto) 0.0 Baso % (Auto) 0.4 Neut # (Auto) 7.0 Lymph # (Auto) 0.7 L [place] # (Auto) 0.7 Eos # (Auto) 0.0 Baso # (Auto) 0.0 WBC Differential . Differential Comment Auto diff final Sodium 137 Potassium 3.9 Chloride 103 Carbon Dioxide 22.8 Anion Gap 11 BUN 18 Creatinine 0.83 Estimated GFR Greater than 89 POC Glucose Random Glucose 105 Calcium 9.2 Magnesium 1.9 Total Bilirubin 0.7 AST 80 H ALT 112 H Alkaline Phosphatase 57 Total Protein 8.6 H Albumin 4.1 Lipase 58 L Urine Color [place] Urine Clarity Cloudy H Urine pH 5.0 Ur Specific [place] 1.025 Urine Protein 100 H Urine Glucose (UA) Negative Urine Ketones 20 Urine Occult Blood Negative Urine Nitrate Negative Urine Bilirubin Negative Urine Urobilinogen 4 or greater Ur Leukocyte Esterase Negative Urine RBC 1 Urine WBC 3 Amorphous Sediment Rare H Urine Bacteria Few H Urine Mucus Many H Micro UA Comment Culture not ind Ur Microscopic Review Not Reportable Urine Culture Comments Culture not ind Urine Opiates Screen Ur Barbiturates Screen Ur Amphetamines Screen U Benzodiazepines Scrn Urine Cocaine Screen U Cannabinoids Screen Serum Alcohol 07/28/18 07/28/18 07/28/18 17:30 20:48 23:45 WBC RBC Hgb Hct MCV MCH MCHC RDW Plt Count MPV Neut % (Auto) Lymph % (Auto) [place] % (Auto) Eos % (Auto) Baso % (Auto) Neut # (Auto) Lymph # (Auto) [place] # (Auto) Eos # (Auto) Baso # (Auto) WBC Differential Differential Comment Sodium 141 Potassium 3.7 Chloride 106 Carbon Dioxide 25.1 Anion Gap 10 BUN 14 Creatinine 0.79 Estimated GFR Greater than 89 POC Glucose 125 H Random Glucose 104 Calcium 8.4 L D Magnesium Total Bilirubin 0.7 AST 62 H ALT 101 H Alkaline Phosphatase 53 Total Protein 7.6 D Albumin 3.7 Lipase Urine Color Urine Clarity Urine pH Ur Specific [place] Urine Protein Urine Glucose (UA) Urine Ketones Urine Occult Blood Urine Nitrate Urine Bilirubin Urine Urobilinogen Ur Leukocyte Esterase Urine RBC Urine WBC Amorphous Sediment Urine Bacteria Urine Mucus Micro UA Comment Ur Microscopic Review Urine Culture Comments Urine Opiates Screen Pos H Ur Barbiturates Screen Neg Ur Amphetamines Screen Neg U Benzodiazepines Scrn Neg Urine Cocaine Screen Neg U Cannabinoids Screen Pos H Serum Alcohol Less than 3 07/28/18 23:45 WBC 8.9 RBC 4.65 Hgb 14.2 Hct 41.3 MCV 88.7 MCH 30.5 MCHC 34.4 RDW 13.1 Plt Count 210 MPV 9.3 Neut % (Auto) 79.3 H Lymph % (Auto) 10.4 [place] % (Auto) 9.9 H Eos % (Auto) 0.0 Baso % (Auto) 0.4 Neut # (Auto) 7.1 Lymph # (Auto) 0.9 L [place] # (Auto) 0.9 Eos # (Auto) 0.0 Baso # (Auto) 0.0 WBC Differential . Differential Comment Auto diff final Sodium Potassium Chloride Carbon Dioxide Anion Gap BUN Creatinine Estimated GFR POC Glucose Random Glucose Calcium Magnesium Total Bilirubin AST ALT Alkaline Phosphatase Total Protein Albumin Lipase Urine Color Urine Clarity Urine pH Ur Specific [place] Urine Protein Urine Glucose (UA) Urine Ketones Urine Occult Blood Urine Nitrate Urine Bilirubin Urine Urobilinogen Ur Leukocyte Esterase Urine RBC Urine WBC Amorphous Sediment Urine Bacteria Urine Mucus Micro UA Comment Ur Microscopic Review Urine Culture Comments Urine Opiates Screen Ur Barbiturates Screen Ur Amphetamines Screen U Benzodiazepines Scrn Urine Cocaine Screen U Cannabinoids Screen Serum Alcohol - Imaging Impressions Abdomen/Pelvis CT 07/28/18 16:24 CONCLUSION: 1. Mild hepatosplenomegaly. Head CT 07/28/18 18:24 CONCLUSION: 1. No acute findings in the brain. 2. Left maxillary sinus disease. . - Procedures none Assessment and Plan - Plan 1. Seizure vs Pseudosz Seizure was witnessed by ED staff who has concern for possible pseudoseizure Patient reports alcohol and benzo abuse [facility] protocol Seizure precautions EEG ordered, if negative for seizure activity will plan for discharge Also obtain MRI and consult neurology. IV hydration and monitor for rhabdomyolysis 2. Abdominal pain Patient with history of pancreatitis, likely alcohol induced Lipase within normal limits CT of the abdomen/pelvis significant for mild hepatosplenomegaly without acute process Now resolved 3. History of alcohol abuse/benzo abuse Plan as above FEN Regular diet Electrolytes: Monitor and replete as needed DVT prophylaxis, patient will be out of bed Discharge Planning: Will consult case management if patient meets criteria for inpatient status then will transfer to neurology floor Patient is under police custody
[2018-07-29] MEDS ORDERED: Multivitamin/Minerals Therapeutic Tablet PO SCH (09:00)
[2018-07-29] MEDS ORDERED: Folic Acid 1 MG Tablet PO SCH (09:00)
[2018-07-29] MEDS ORDERED: Potassium Chloride Inj 20 MEQ, Sodium Bicarbonate 8.4% Inj 50 MEQ in Sod Chloride 0.9% ... IV.CONT SCH (11:00)
[2018-07-29 11:03] LABS: Calcium 8.8 mg/dL (8.5-10.1); Carbon Dioxide 24.2 meq/L (21.0-32.0); Potassium 3.3 meq/L (3.5-5.1)
--- NOTE | 2018-07-29 14:52 | MB ---
cc: Jose Maria Valerio MD, PhD DATE: 07/29/2018 REASON FOR CONSULTATION: Seizure versus pseudoseizure. HISTORY OF PRESENT ILLNESS: This is a 28-year-old male who states he had a history of seizure several years ago, was treated with Trileptal and Keppra, but has been off these. He presented to the ER with symptoms of abdominal pain. In the ER began having witnessed generalized tonic-clonic seizures. He has had several of these events, some have been witnessed and have appeared to be pseudoseizure like with certain posturing. He states he takes Xanax 2 mg bars 4-5 daily, he drinks alcohol chronically, stopped all this last week. NEUROLOGIC EXAMINATION: His blood pressure is 94/54, pulse 45, respirations 20, temperature 99 degrees high cortical function. Normal cranial nerves. Intact motor exam. No focal deficits. He has normal tone. Reflexes symmetric. CT brain negative. Left maxillary sinus disease intracranially normal. LABORATORY DATA: White count 8900, hemoglobin 14.2, hematocrit 41.3%, platelet count 210,000. Sodium is 139, potassium 3.3, chloride 103, CO2 is 24.2. The BUN is 12, creatinine 1.11, GFR 78, glucose 111. IMPRESSION: Seizures versus pseudoseizures. These may be withdrawal seizures as well from Xanax and alcohol. RECOMMENDATIONS: I would recommend starting him on Keppra also p.r.n. Ativan. Recommend thiamine. Also obtain MRI of the brain, as well as an EEG. Jose Maria Valerio MD, PhD BOB/ , 02:31 PM , 02:40 PM
[2018-07-29 16:33] VITALS: BP 114/61; PULSE 68; RESP 16; TEMP 97.9; O2SAT 96
--- NOTE | 2018-07-29 20:31 | MG ---
cc: Jurgen Kim MD EEG RECORD NUMBER: [id number] DESCRIPTION: Stage II sleep with delta theta frequencies and spindles, 10-40 microvolts occurring, good anterior to posterior gradient. Single lead EKG showing sinus rhythm and arousals, good background buildup 8-9 Hz. INTERPRETATION: Mainly stage II sleep electroencephalogram with brief periods of normal wakefulness. Clinical correlation. MD KORI Black/lashaun , 07:18 PM , 07:23 PM
== END 2018-07-29 18:46 | disposition left against medical advice (07) ==
LOC: NEPD 15:52 → NEDA 15:52 → NEPFCDU 20:59 → N07 07-29 13:14
PROVIDERS: ADMIT Internal Medicine; ATTEND Internal Medicine

== ENCOUNTER 2018-08-25 04:07 | Observation (INO) ==
[2018-08-25] MEDS ORDERED: Sod Chloride 0.9% Inj 1,000 ML IV.SIG ONE (04:31)
--- NOTE | 2018-08-25 05:27 | XR ---
EXAM DATE: 08/25/2018 5:18 AM EST AGE/SEX: 28 years / Male INDICATIONS: Nausea, vomiting, seizures. CLINICAL DATA: This is the patient's initial encounter. Patient reports that signs and symptoms have been present for 1 day and indicates a pain score of 0/10. MEDICAL/SURGICAL HISTORY: Seizures. None. COMPARISON: No prior exams available for comparison. FINDINGS: Single AP view the chest. The lungs are clear. Cardiomediastinal silhouette within normal limits. No evidence of pleural effusion or pneumothorax. CONCLUSION: No acute cardiopulmonary disease identified. Electronically signed by: Haider Hanley MD 08/25/2018 5:26 AM EST
--- NOTE | 2018-08-25 05:28 | XR ---
EXAM DATE: 08/25/2018 5:19 AM EST AGE/SEX: 28 years / Male INDICATIONS: Right shoulder pain after seizing today. CLINICAL DATA: This is the patient's initial encounter. Patient reports that signs and symptoms have been present for 1 day and indicates a pain score of 9/10. MEDICAL/SURGICAL HISTORY: Seizures. None. COMPARISON: No prior exams available for comparison. FINDINGS: 5 views of the right shoulder. Bone alignment within normal limits. No evidence of fracture. Glenohum eral joint within normal limits. Acromial navicular joint within normal limits. CONCLUSION: Right shoulder series within normal limits. Electronically signed by: Haider Hanley MD 08/25/2018 5:27 AM EST
[2018-08-25 05:36] LABS: Baso % (Auto) 0.5 % (0.0-2.0); Eos % (Auto) 0.3 % (0.0-4.0); Hematocrit 40.9 % (39.0-51.0); Hemoglobin 14.5 gm/dL (13.0-17.0); Lymph # (Auto) 0.7 th/mm3 (1.0-4.8); Lymph % (Auto) 11.3 % (9.0-44.0); Mean Corpuscular HGB Conc 35.5 % (32.0-36.0); Mean Corpuscular Hemoglobin 31.5 pg (27.0-34.0); Mean Corpuscular Volume 88.7 fL (80.0-100.0); Mean Platelet Volume 8.8 fL (7.0-11.0); Mono # (Auto) 0.4 th/mm3 (0.0-0.9); Mono % (Auto) 7.1 % (0.0-8.0); Neut # (Auto) 4.9 th/mm3 (1.8-7.7); Neut % (Auto) 80.8 % (16.0-70.0); Platelet Count 222 th/mm3 (150-450); Red Blood Count 4.61 mil/mm3 (4.50-5.90); Red Cell Distribution Width 13.5 % (11.6-17.2); White Blood Count 6.1 th/mm3 (4.0-11.0)
[2018-08-25 05:51] LABS: Alanine Aminotransferase 51 U/L (12-78); Albumin 3.6 g/dL (3.4-5.0); Anion Gap 8 meq/L (5-15); Aspartate Aminotransferase 40 U/L (15-37); Calcium 8.2 mg/dL (8.5-10.1); Chloride 106 meq/L (98-107); Glomerular Filtration Rate Greater Than 89 mL/min (>89); Glucose,Random 134 mg/dL (74-106); Lipase 94 U/L (73-393); Magnesium 1.8 mg/dL (1.5-2.5); Potassium 4.1 meq/L (3.5-5.1); Sodium 141 meq/L (136-145)
[2018-08-25 05:57] LABS: Alkaline Phosphatase 57 U/L (45-117); Blood Urea Nitrogen 9 mg/dL (7-18); Creatine Kinase 348 U/L (39-308); Total Protein 7.9 g/dL (6.4-8.2)
--- NOTE | 2018-08-25 05:57 | ED ---
HPI General Chief complaint: Seizure Stated complaint: medical Time Seen by Provider: 08/25/18 04:16 Source: patient Limitations: no limitations History of Present Illness HPI narrative: The patient is a 28 year old male who presents to the [facility] emergency department with a history of seizure activity that occurred prior to arrival. The patient reportedly had 2 generalized clonic tonic seizures witnessed by the staff at the [facility] facility where he is currently in detox. 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 He reports that he was taking alprazolam 6 mg daily. The patient has been on Suboxone and took his first dose at 9 PM last night. He reports that he has had intermittent nausea, vomiting, and diarrhea related to his withdrawal syndrome. No medications were administered for his seizure activity. Ambulance services were called and by that time the patient was awake and alert. The patient reports having right shoulder pain since the seizure activity. He denies biting his tongue. He denies any loss of bowel or bladder control. On review of systems otherwise, the patient denies having any known recent fevers, cough, congestion, neck pain, chest pain, shortness of breath, urinary symptoms, one-sided weakness, slurred speech, facial droop, difficulty with word finding ability, vision changes, or vertigo. Related Data Home Medications Medication Instructions Recorded Confirmed No Known Home Medications 08/25/18 08/25/18 Allergies Allergy/AdvReac Type Severity Reaction Status Date / Time No Known Allergies Allergy Verified 08/25/18 04:16 Review of Systems ROS: all other systems reviewed are negative [facility] Medical History Medical History Appendicitis (Acute) Benzodiazepine abuse (Acute) Heroin use (Acute) Pancreatitis (Acute) Surgical History Surgical History History of appendectomy (Acute) Family History Family History Other Diabetes mellitus Social History Social History Substance History: Active Abuse Second Hand Smoke Exposure: No Smoking Status: Current every day smoker Tobacco Type: Cigarettes How Often Do You Have a Drink Containing Alcohol: Never Recent Travel in [facility] within the Last 8 Weeks: No Recent Out of Country Travel within the Last 8 Weeks: No Substance Abuse Detail Benzodiazepines: Substance Use Status: Active Opiates: Substance Use Status: Active Marijuana: Substance Use Status: Active Immunization History Tetanus Immunization: Unsure Exam Const General: cooperative, no acute distress and well developed Nutritional Appearance: well nourished Orientation: alert, awake and oriented x3 HENMT Head: normocephalic and atraumatic Nose: no nasal discharge and no epistaxis Mouth: other (Tacky mucous membranes) Throat: posterior oropharynx normal and uvula midline Eyes Sclera: normal sclerae Pupils: PERRL Neck Neck: no meningeal signs, trachea midline and no JVD Resp Effort & Inspection: no use of accessory muscles Auscultation: clear to auscultation bilaterally Cardio Rate: regular rate Rhythm: regular rhythm Heart Sounds: no murmurs GI Inspection: non-distended Palpation: soft, no hepatosplenomegaly, no guarding, not rigid and tender in the epigastrum; not in the LLQ, not in the RLQ, not in the LUQ, not in the RUQ, not at McBurney's point, not periumbilically, not suprapubicly, Juarez's sign negative and with no rebound tenderness Auscultation: normal bowel sounds Back/Spine/Pelvis Back: no CVA tenderness Skin General: dry skin (warm) Neuro General: alert, awake and oriented x3 Cranial Nerves: CN's II-XI intact bilaterally Speech: speech normal Motor: strength 5/5 throughout and no movement abnormalities noted Sensory Exam: no sensory deficits noted Extrem General: normal to inspection, no clubbing, no cyanosis and no edema Right upper extremity: normal to inspection and shoulder/upper arm (The patient has pain with abduction of his right shoulder above 90 degrees. The patient has pain with lifting his arm up above his head. Patient reports that the pain is along the lateral aspect of the shoulder, overlying the deltoid. There is no erythema or ecchymosis. No step-off or crepitus. No loss of range of motion. No decreased strength.) Left upper extremity: normal to inspection and full ROM Right lower extremity: normal to inspection and full ROM Left lower extremity: normal to inspection and full ROM Psych Mood: congruent mood Affect: normal affect Judgment: judgment good Course Initial Documented Vital Signs Temperature 98.9 F 08/25/18 04:13 Pulse Rate 57 L 08/25/18 04:13 Respiratory Rate 18 08/25/18 04:13 Blood Pressure 121/76 08/25/18 04:13 Pulse Oximetry 95 08/25/18 04:13 Last Documented Vital Signs Temperature 98.9 F 08/25/18 04:13 Pulse Rate 57 L 08/25/18 04:13 Respiratory Rate 18 08/25/18 04:13 Blood Pressure 121/76 08/25/18 04:13 Pulse Oximetry 98 08/25/18 04:29 Medical Decision Making MDM Narrative Medical decision making narrative: During the course of the patient's emergency department visit, the patient's history, examination, and differential diagnosis were reviewed with the patient. The patient was placed on a alarm security or surveillance monitor with oximetry and frequent blood pressure monitoring. The patient had IV access obtained and blood work sent for analysis. A diagnostic evaluation was started regarding the patient's seizure activity and now intractable vomiting. In route to this facility the patient began to have dry heaving and then active vomiting. The patient was given Zofran 4 mg IV by ambulance services. The patient again had a recurrence of vomiting and was given Zofran 4 mg IV in the emergency department. The patient was given Ativan 1 mg IV. The patient was started on normal saline 1 L IV. The patient's diagnostic studies are remarkable for a CBC that shows a normal white blood cell count, hemoglobin 14.5, platelets 222, 80.8 neutrophils, chemistries remarkable for a glucose of 134, calcium 8.2, AST 40, CPK 348 with a normal MB percent, troponin I is less than 0.02, lipase 94, a chest x-ray showed no acute cardiopulmonary abnormality. Right shoulder x-ray revealed no acute abnormality. The patient had a recurrence of vomiting and was given Compazine 5 mg IV. Patient again had a recurrence of vomiting and was given another dose of Compazine 5 mg IV. The patient will be admitted to the hospital for intractable vomiting associated with detoxing from opiates and benzodiazepines, associated with seizure activity. The patient's case including history, pertinent physical examination findings, and laboratory studies were discussed with Dr. Lobo. It was agreed that the patient would be admitted to the hospitalist service. The patient's results were discussed with the patient, including the plan of care. I explained that further testing and/ or monitoring is indicated based on the patient's history, examination, and/ or laboratory findings. Therefore, I recommended admission for additional evaluation. The patient expressed understanding and was agreeable with this plan. The patient was admitted to the hospital in guarded condition and sent to a bed under the care of the [facility] service. Medical Screen Exam Complete: Yes Emergency Medical Condition: Yes Differential Diagnosis Differential Diagnosis: Dehydration, versus electrolyte derangements, versus benzodiazepine related withdrawal seizure Medical Records Medical records reviewed: Yes I reviewed the patient's medical records. Lab Data Lab results reviewed: Yes I reviewed the patient's lab results. Result diagrams: 08/25/18 05:20 08/25/18 05:20 Lab Results 08/25/18 08/25/18 Range/Units 05:20 05:20 WBC 6.1 (4.0-11.0) th/mm3 RBC 4.61 (4.50-5.90) mil/mm3 Hgb 14.5 (13.0-17.0) gm/dL Hct 40.9 (39.0-51.0) % MCV 88.7 (80.0-100.0) fL MCH 31.5 (27.0-34.0) pg MCHC 35.5 (32.0-36.0) % RDW 13.5 (11.6-17.2) % Plt Count 222 (150-450) th/mm3 MPV 8.8 (7.0-11.0) fL Neut % (Auto) 80.8 H (16.0-70.0) % Lymph % (Auto) 11.3 (9.0-44.0) % [place] % (Auto) 7.1 (0.0-8.0) % Eos % (Auto) 0.3 (0.0-4.0) % Baso % (Auto) 0.5 (0.0-2.0) % Neut # (Auto) 4.9 (1.8-7.7) th/mm3 Lymph # (Auto) 0.7 L (1.0-4.8) th/mm3 [place] # (Auto) 0.4 (0.0-0.9) th/mm3 Eos # (Auto) 0.0 (0.0-0.4) th/mm3 Baso # (Auto) 0.0 (0.0-0.2) th/mm3 WBC Differential . Differential Comment Auto diff final Sodium 141 (136-145) meq/L Potassium 4.1 (3.5-5.1) meq/L Chloride 106 (98-107) meq/L Carbon Dioxide 27.0 (21.0-32.0) meq/L Anion Gap 8 (5-15) meq/L BUN 9 (7-18) mg/dL Creatinine 0.78 (0.60-1.30) mg/dL Estimated GFR Greater than 89 (>89) mL/min Random Glucose 134 H (74-106) mg/dL Calcium 8.2 L (8.5-10.1) mg/dL Magnesium 1.8 (1.5-2.5) mg/dL Total Bilirubin 0.3 (0.2-1.0) mg/dL AST 40 H (15-37) U/L ALT 51 (12-78) U/L Alkaline Phosphatase 57 (45-117) U/L Total Creatine Kinase 348 H (39-308) U/L CK-MB (CK-2) 4.4 H (0.5-3.6) ng/mL CK-MB (CK-2) % 1.3 (0.0-4.0) % Troponin I Less than 0.02 L (0.02-0.05) ng/mL Total Protein 7.9 (6.4-8.2) g/dL Albumin 3.6 (3.4-5.0) g/dL Lipase 94 (73-393) U/L Imaging Data Radiologist's impression: Chest X-Ray 08/25/18 04:30 CONCLUSION: No acute cardiopulmonary disease identified. Shoulder X-Ray 08/25/18 04:37 CONCLUSION: Right shoulder series within normal limits. Discharge Plan Discharge Disposition Patient Disposition: ED Admit(ED Internal Use Only) Discharge Order Discharge Orders: ED Use Only Admit Order (Routine); Ordered 08/25/18 Ordered By: Paris Flood Discharge Details Diagnosis: Intractable vomiting, Benzodiazepine withdrawal Physicians Team ED Provider: Paris Flood Primary Care Provider: UNKNOWN, Rxs /Orders / Referrals /Forms Prescriptions: No Action No Known Home Medications RF: 0 Status ED Status: With Doctor
[2018-08-25 06:10] LABS: CKMB Percent 1.3 % (0.0-4.0); Creatine Kinase MB 4.4 ng/mL (0.5-3.6)
--- NOTE | 2018-08-25 08:11 | P.CONNEU ---
History of Present Illness Service: Neurology Primary Care Provider: UNKNOWN Chief Complaint: Seizure History of Present Illness: 28-year-old getting detoxification treatment at [facility] apparently is taking high doses of benzos abruptly stopped admitted for seizure activity. Seen by neurology last month for similar symptoms. 07/29/2018 EEG negative for seizure activity Patient denies any childhood history of epilepsy states he has seizures when he stops taking Xanax. Denies any head or neck trauma or any focal weakness. 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 - Medical History Medical History: Medical History (Last Reviewed 08/25/18 @ 08:59 by Marcello Ornelas MD) Appendicitis Benzodiazepine abuse Heroin use Pancreatitis - Surgical History Surgical History: Surgical History (Last Reviewed 08/25/18 @ 08:59 by Marcello Ornelas MD) History of appendectomy - Family History Family History: Family History (Last Reviewed 08/25/18 @ 08:59 by Marcello Ornelas MD) Other Diabetes mellitus - Tobacco History Second Hand Smoke Exposure: No Tobacco Use In Past 30 Days: Yes Smoking Status: Current every day smoker Tobacco Type: Cigarettes - Alcohol History How Often Do You Have a Drink Containing Alcohol: Never - Substance Use History Substance History: Active Abuse - Substance Use Type Benzodiazepines Status: Active Opiates Status: Active Marijuana Status: Active - Travel History Recent Travel in the [facility] Within the Last 8 Weeks: No Recent Travel Out of the Country Within the Last 8 Weeks: No - Immunization History Tetanus Immunization: Unsure Medications and Allergies Active Medications: Active Medications Dextrose/Sodium Chloride (D5w/1/2 Ns Inj) 1,000 mls @ 100 mls/hr IV.CONT .Q10H [facility] Lorazepam (Ativan Inj) 2 mg IV.PUSH Q10M PRN PRN Reason: SEE LABEL COMMENTS Sodium Chloride (Ns Flush) 2 ml IV.FLUSH PRN PRN PRN Reason: FLUSH AFTER USING IV ACCESS Allergies Allergy/AdvReac Type Severity Reaction Status Date / Time No Known Allergies Allergy Verified 08/25/18 04:16 Home Medications Medication Instructions Recorded Confirmed Type No Known Home Medications 08/25/18 08/25/18 History Exam Vital signs: Vital Signs 08/25/18 04:13 08/25/18 04:29 08/25/18 06:26 Temperature 98.9 F Pulse Rate 57 L 51 L Respiratory Rate 18 16 Blood Pressure 121/76 133/74 Pulse Oximetry 95 98 98 Intake & Output 08/24/18 08/25/18 08/25/18 18:59 06:59 18:59 Intake Total 1000 / 1000 Balance 1000 / 1000 Weight 72.575 kg Intake: IV 1000 / 1000 NS Inj 1,000 ML @ Wide Open IV. 1000 / 1000 SIG BOLUS ONE Rx#:[id number] Narrative: Sleeping easily arousable poor eye contact and answers questions no dysarthria Intact visual carrizales full no facial asymmetry tongue midline able to move all 4 extremity gravity gait not assessed secondary fall risk Results - Labs CBC & Chem 7: 08/25/18 05:20 08/25/18 05:20 Labs: Laboratory Results - last 24 hr 08/25/18 08/25/18 05:20 05:20 WBC 6.1 RBC 4.61 Hgb 14.5 Hct 40.9 MCV 88.7 MCH 31.5 MCHC 35.5 RDW 13.5 Plt Count 222 MPV 8.8 Neut % (Auto) 80.8 H Lymph % (Auto) 11.3 Warren % (Auto) 7.1 Eos % (Auto) 0.3 Baso % (Auto) 0.5 Neut # (Auto) 4.9 Lymph # (Auto) 0.7 L Warren # (Auto) 0.4 Eos # (Auto) 0.0 Baso # (Auto) 0.0 WBC Differential . Differential Comment Auto diff final Sodium 141 Potassium 4.1 Chloride 106 Carbon Dioxide 27.0 Anion Gap 8 BUN 9 Creatinine 0.78 Estimated GFR Greater than 89 Random Glucose 134 H Calcium 8.2 L Magnesium 1.8 Total Bilirubin 0.3 AST 40 H ALT 51 Alkaline Phosphatase 57 Total Creatine Kinase 348 H CK-MB (CK-2) 4.4 H CK-MB (CK-2) % 1.3 Troponin I Less than 0.02 L Total Protein 7.9 Albumin 3.6 Lipase 94 - Imaging Impressions Chest X-Ray 08/25/18 04:30 CONCLUSION: No acute cardiopulmonary disease identified. Shoulder X-Ray 08/25/18 04:37 CONCLUSION: Right shoulder series within normal limits. Review/Management - Diagnosis (1) Drug withdrawal seizure Code(s): F19.239 - Other psychoactive substance dependence with withdrawal, unspecified; R56.9 - Unspecified convulsions Status: Acute Current Visit: Yes (2) Benzodiazepine withdrawal Code(s): F13.239 - Sedative, hypnotic or anxiolytic dependence with withdrawal, unspecified Status: Acute Current Visit: Yes - Review/Management Plan: Recurrent benzo withdrawal seizure Seen at [facility] Recommendation Follow-up EEG We will give benzodiazepines as needed for any seizure greater than 2 minutes; may also need to be started on a low-dose taper defer that to the medical service and possibly psychiatry service Continue Keppra that he was prescribed his previous admission which may be able to be discontinued in the future outpatient setting as his seizures appear to be related to benzo withdrawal Seizure, fall precautions Medical management and psychiatric management We will follow peripherally as needed Can otherwise follow-up in the outpatient setting as needed No driving, operating any heavy machinery or dangerous machinery, swimming alone for at least 6 months of being seizure, spell free. (2) Benzodiazepine withdrawal Qualifiers: Complication of substance-induced condition: with unspecified complication Qualified Code(s): F13.239 - Sedative, hypnotic or anxiolytic dependence with withdrawal, unspecified
--- NOTE | 2018-08-25 08:17 | ECG ---
Date Performed: 08/25/2018 Time Performed: 04:43:21 PTAGE: 28 years EKG: SINUS BRADYCARDIA WITH SINUS ARRHYTHMIA POSSIBLE RIGHT VENTRICULAR CONDUCTION DELAY MODERAT E ST DEPRESSION ABNORMAL ECG NO PREVIOUS TRACING DOCTOR: Taqueria Ovalle Interpretating Date/Time 08/25/2018 08:16:40
[2018-08-25] MEDS: Dextrose 5%/NaCl 0.45% Inj 1,000 ML IV.CONT SCH ×3 (08:21→23:54)
--- NOTE | 2018-08-25 09:02 | P.HPIM ---
History of Present Illness Primary Care Physician: UNKNOWN Chief Complaint: seizure History of Present Illness: patient is a 28 y/o male with history of seizure disorder , non-compliant, who was brought to ER after he had seizures last night. he says that he was on seizure medications but he stopped taking them two months ago. he's not a very good historian at this time; somewhat sedated after he received a dose of Ativan in ER. howerver per ER recored he's on Suboxone and he also says that he's tking two milligram of Xanax twice daily and the last dose was last Friday. he doesn't report any tongue-biting or urinary incontinence. he says that he had some nausea and vomiting yesterday. Review of Systems Review of Systems: all other systems reviewed are negative [facility] Medical History Medical History Appendicitis (Acute) Benzodiazepine abuse (Acute) Heroin use (Acute) Pancreatitis (Acute) Surgical History Surgical History History of appendectomy (Acute) Family History Family History Other Diabetes mellitus Social History Social History Substance History: Active Abuse Second Hand Smoke Exposure: No Smoking Status: Current every day smoker Tobacco Type: Cigarettes How Often Do You Have a Drink Containing Alcohol: Never Recent Travel in [facility] within the Last 8 Weeks: No Recent Out of Country Travel within the Last 8 Weeks: No Substance Abuse Detail Benzodiazepines: Substance Use Status: Active Opiates: Substance Use Status: Active Marijuana: Substance Use Status: Active Immunization History Tetanus Immunization: Unsure Medications and Allergies Allergies Allergy/AdvReac Type Severity Reaction Status Date / Time No Known Allergies Allergy Verified 08/25/18 04:16 Home Medications Medication Instructions Recorded Confirmed Type No Known Home Medications 08/25/18 08/25/18 History Active Medications: Active Medications Dextrose/Sodium Chloride (D5w/1/2 Ns Inj) 1,000 mls @ 100 mls/hr IV.CONT .Q10H [facility] Last Admin: 08/25/18 08:21 Dose: 100 mls/hr Lorazepam (Ativan Inj) 2 mg IV.PUSH Q10M PRN PRN Reason: SEE LABEL COMMENTS Sodium Chloride (Ns Flush) 2 ml IV.FLUSH PRN PRN PRN Reason: FLUSH AFTER USING IV ACCESS Physical Exam Vital signs: Last Vital Signs Temp 98.9 F 08/25/18 04:13 Pulse 51 L 08/25/18 06:26 Resp 16 08/25/18 06:26 BP 133/74 08/25/18 06:26 Pulse Ox 98 08/25/18 06:26 Intake & Output 08/23/18 08/24/18 08/25/18 08/26/18 06:59 06:59 06:59 06:59 Intake Total 1000 / 1000 Balance 1000 / 1000 Weight 72.575 kg Constitutional no acute distress Routine HEENT Exam Eye: Present PERRL Routine Neck Exam Present supple Routine Respiratory Exam Present CTA bilaterally Routine Cardiovascular Exam Present RRR Routine Abdominal Exam Present soft Routine Extremities Exam Comments: no pedal edema. Routine Neurological Exam Present alert somewhat sedated. Results Labs CBC & Chem 7: 08/25/18 05:20 08/25/18 05:20 Imaging Impressions Chest X-Ray 08/25/18 04:30 CONCLUSION: No acute cardiopulmonary disease identified. Shoulder X-Ray 08/25/18 04:37 CONCLUSION: Right shoulder series within normal limits. Caprini VTE Risk Assessment Caprini VTE Risk Assessment: No/Low Risk (score <= 1) Caprini Risk Assessment Model: Point Value = 1 Point Value = 2 Point Value = 3 Point Value = 5 Age 41-60 Minor surgery BMI > 25 kg/m2 Swollen legs Varicose veins or History of unexplained or recurrent spontaneous Oral contraceptives or hormone replacement Sepsis (< 1 month) Serious lung disease, including pneumonia (< 1 month) Abnormal pulmonary function Acute myocardial infarction Congestive heart failure (< 1 month) History of inflammatory bowel disease Medical patient at bed rest Age 61-74 Arthroscopic surgery Major open surgery (> 45 min) Laparoscopic surgery (> 45 min) Malignancy Confined to bed (> 72 hours) Immobilizing plaster cast Central venous access Age >= 75 History of VTE Family history of VTE Factor V Leiden Prothrombin [id number] Lupus anticoagulant Anticardiolipin antibodies Elevated serum homocysteine Heparin-induced thrombocytopenia Other congenital or acquired thrombophilia Stroke (< 1 month) Elective arthroplasty Hip, pelvis, or leg fracture Acute spinal cord injury (< 1 month) Prophylaxis Regimen: Total Risk Factor Score Risk Level Prophylaxis Regimen 0-1 Low Early ambulation 2 Moderate Order ONE of the following: *Sequential Compression Device (SCD) *Heparin 5000 units SQ BID 3-4 Higher Order ONE of the following medications: *Heparin 5000 units SQ TID *Enoxaparin/Lovenox 40 mg SQ daily (WT < 150 kg, CrCl > 30 mL/min) *Enoxaparin/Lovenox 30 mg SQ daily (WT < 150 kg, CrCl > 10-29 mL/min) *Enoxaparin/Lovenox 30 mg SQ BID (WT < 150 kg, CrCl > 30 mL/min) AND/OR *Sequential Compression Device (SCD) 5 or more Highest Order ONE of the following medications: *Heparin 5000 units SQ TID (Preferred with Epidurals) *Enoxaparin/Lovenox 40 mg SQ daily (WT < 150 kg, CrCl > 30 mL/min) *Enoxaparin/Lovenox 30 mg SQ daily (WT < 150 kg, CrCl > 10-29 mL/min) *Enoxaparin/Lovenox 30 mg SQ BID (WT < 150 kg, CrCl > 30 mL/min) AND *Sequential Compression Device (SCD) Assessment and Plan Plan A/P - seizure with hsitory of benzodiazepine use/ non-compliant with antiepileptics continue with seizure precautions and neuro-checks- ativan as needed for seizure- obtain EEG and consult Neurology. Discussed Condition With: the patient. Discharge Planning: home when neurological w/u completed and stable.
[2018-08-25] MEDS: levETIRAcetam 500 MG Tablet PO SCH ×2 (09:40→20:10)
--- NOTE | 2018-08-25 18:39 | MG ---
cc: Tien Byers MD ELECTROENCEPHALOGRAM NUMBER: [id number] CLINICAL HISTORY: Visual hallucinations in a 28-year-old man, Hector. MEDICATIONS: Ativan. DESCRIPTION: An 8 Hz, 60 microvolt symmetric posterior rhythm is noted. The recording overall is synchronous and symmetric. No hemisphere asymmetry is noted. No epileptiform or seizure activity is seen. Photic stimulation is performed without significant posterior driving. IMPRESSION: Normal awake electroencephalogram. No evidence for a focal or diffuse abnormality. MD JOAQUIN Arenas/grisel , 06:12 PM , 06:16 PM
[2018-08-26] MEDS: Dextrose 5%/NaCl 0.45% Inj 1,000 ML IV.CONT SCH ×2 (05:50→11:09)
--- NOTE | 2018-08-26 07:56 | P.PN ---
Subjective Interval history: Follow-up for benzo withdrawal seizures. The patient reports no further seizures since his arrival. He complains of some right shoulder pain since he had his seizure, feels like he pulled something. He is able to move the arm, but certain positioning causes shoulder pain. Patient reports some nausea and few episodes of vomiting overnight, currently improved. He states he has chronic pancreatitis and gets flareups occasionally. He is attempting oral intake this morning. He denies any fevers or chills. He states his bowel movements were regular, no diarrhea. He has no other medical complaints at this time. He has been discussing with his dad, and he plans to go to a sober living house after discharge. Physical Exam Vital signs: Vital Signs 08/25/18 08:00 08/25/18 12:00 08/25/18 16:00 Temperature 98.3 F 99.3 F 99.2 F Pulse Rate 50 L 50 L 48 L Respiratory Rate 12 12 12 Blood Pressure 147/78 H 140/72 124/60 Pulse Oximetry 99 98 97 08/25/18 20:00 08/25/18 21:25 08/26/18 00:00 Temperature 98.8 F 98.6 F Pulse Rate 52 L 43 L 52 L Respiratory Rate 17 16 Blood Pressure 124/60 121/82 Pulse Oximetry 98 96 08/26/18 04:00 Temperature 98.8 F Pulse Rate 52 L Respiratory Rate 16 Blood Pressure 121/60 Pulse Oximetry 98 Intake & Output 08/25/18 08/26/18 08/26/18 18:59 06:59 18:59 Intake Total 1000 / 1000 1000 / 1000 Balance 1000 / 1000 1000 / 1000 Weight 69.2 kg Intake: IV 1000 / 1000 1000 / 1000 D5W/1/2 NS Inj 1,000 ML @ 100 1000 / 1000 1000 / 1000 mls/hr IV.CONT .Q10H [facility] Rx#: [id number] Other: # Voids 3 Date of Last Bowel Movement 08/24/18 Narrative: GENERAL: Well-nourished, well-developed young male patient in [facility]. SKIN: Warm and dry. No rash. HEENT: Normocephalic. Atraumatic. Pupils equal and round. Mucous membranes pink and moist. CARDIOVASCULAR: Regular rate and rhythm. No murmur appreciated. RESPIRATORY: No accessory muscle use. Clear to auscultation. Breath sounds equal bilaterally. GASTROINTESTINAL: Abdomen soft, non-tender, nondistended. Normoactive bowel sounds x4. MUSCULOSKELETAL: No obvious deformities. Extremities without clubbing, cyanosis , or edema. Full active range of motion of right shoulder. NEUROLOGICAL: AAO x4. No obvious cranial nerve deficits. Motor grossly within normal limits. Moving all extremities spontaneously. Normal speech. PSYCHIATRIC: Appropriate mood and affect; insight and judgment normal. Results - Labs CBC & Chem 7: 08/25/18 05:20 08/26/18 09:19 - Imaging Chest X-Ray 08/25/18 04:30 CONCLUSION: No acute cardiopulmonary disease identified. Shoulder X-Ray 08/25/18 04:37 CONCLUSION: Right shoulder series within normal limits. Assessment and Plan - Plan 28-year-old male with history of chronic pancreatitis, active IVDU with heroin, Xanax abuse, and previous benzo withdrawal seizures, presents from [facility] after witnessed tonic-clonic seizures. Seizures: Suspect secondary to benzodiazepine withdrawal. Patient abruptly stopped Xanax abuse 2-3 days prior. -Neurochecks, seizure precautions -EEG reviewed and unremarkable -Neurology consulted, likely benzo withdrawal seizures, started on Keppra 500 twice a day -No further seizure activity, stable for discharge Polysubstance abuse with IV heroin and Xanax: Patient with ongoing abuse, came from [facility] where he was voluntarily receiving drug rehab -Counseled on continued cessation -Patient is being discharged with his father to go to a sober living house Chronic pancreatitis: Patient with intermittent episodes of nausea and epigastric pain, suspect related to withdrawal, however possible pancreatitis flare -Lipase x2 within normal limits -Given supportive treatment with IV fluids and antiemetics as needed -Symptoms improved, tolerating oral intake DVT prophylaxis: Patient is ambulatory Discharge Planning: Discharge patient to home Condition on discharge: Improved Regular Diet as tolerated Ad Marian activity, no driving, seizure precautions Rx written: Keppra 500 mg p.o. twice a day, Compazine 5 mg as needed Follow-up with primary care physician and neurology
[2018-08-26] MEDS ORDERED: Ketorolac Inj 30 MG/ML (IVP) Vial IV.PUSH ONE (08:56)
[2018-08-26 10:18] LABS: Alanine Aminotransferase 63 U/L (12-78); Albumin 4.3 g/dL (3.4-5.0); Alkaline Phosphatase 62 U/L (45-117); Anion Gap 8 meq/L (5-15); Aspartate Aminotransferase 48 U/L (15-37); Blood Urea Nitrogen 7 mg/dL (7-18); Calcium 9.6 mg/dL (8.5-10.1); Carbon Dioxide 29.4 meq/L (21.0-32.0); Chloride 102 meq/L (98-107); Glomerular Filtration Rate Greater Than 89 mL/min (>89); Glucose,Random 107 mg/dL (74-106); Lipase 96 U/L (73-393); Potassium 3.6 meq/L (3.5-5.1); Sodium 139 meq/L (136-145)
[2018-08-26] MEDS: levETIRAcetam 500 MG Tablet PO SCH (13:13)
== END 2018-08-26 14:34 | disposition home or self-care (01) ==
LOC: NEDA 04:07 → NEPC 04:07 → NEPFCDU 08:43
PROVIDERS: ADMIT Internal Medicine; ATTEND Internal Medicine